=== PATIENT | female | born 1960 | race Caucasian/White ===

== ENCOUNTER 2018-06-10 10:20 | Emergency (ER) | payer MEDICAID ==
[2018-06-10] MEDS: ONDANSETRON (ODT) 4 MG TAB ODT (10:51)
[2018-06-10] MEDS: HYDROCODONE/APAP (5/325) TAB PO (10:51)
== END 2018-06-10 13:45 | disposition home or self-care (01) ==
LOC: FTE 10:20
DX: M54.5 Low back pain (principal); E11.9 Type 2 diabetes mellitus without complications; Z79.84 Long term (current) use of oral hypoglycemic drugs
CPT/HCPCS: 72072; 72100; 72220; 99283-25